=== PATIENT | male | born 1975 | race Two or more races ===

== ENCOUNTER 2017-11-09 18:46 | Emergency (ER) | payer BC, OTHER ==
[2017-11-09] MEDS ORDERED: ACETAMINOPHEN 500 MG TABLET PO ONE (19:00)
[2017-11-09] MEDS ORDERED: ACETAMINOPHEN 500 MG TABLET ONE (19:00)
[2017-11-09] MEDS ORDERED: SODIUM CHLORIDE FLUSH 10ML SYR IVF ONE (19:00)
[2017-11-09] MEDS ORDERED: SODIUM CHLORIDE 0.9% 1,000ML IVBOLUS ONE ×2 (19:00→20:30)
[2017-11-09 19:19] LABS: MEAN CORPUSCULAR HEMOGLOBIN 30.2 pg (27.5-34.5); MEAN CORPUSCULAR VOLUME 88.8 fL (81-97); PLATELET COUNT 203 x10^3/uL (130-400); RED BLOOD COUNT 5.68 x10^6/uL (4.38-5.82); RED CELL DISTRIBUTION WIDTH 13.5 % (9.4-14.8)
[2017-11-09 19:28] LABS: INTERNATIONAL NORMALIZED RATIO 1.01 (0.93-1.1); PROTHROMBIN TIME 10.4 Seconds (9.6-11.5)
[2017-11-09 19:34] LABS: RAPID INFLUENZA A Negative (Negative); RAPID INFLUENZA B Negative (Negative)
[2017-11-09 19:39] LABS: MD YES
[2017-11-09 19:52] LABS: BAND#(MANUAL) 1.52 x10^3/uL; BANDS%(MANUAL) 8 % (0-7); LYMPH#(MANUAL) 3.23 x10^3/uL (1-3.4); LYMPHS% (MANUAL) 17 % (22-44); MONOS#(MANUAL) 0.57 x10^3/uL (0.3-2.7); MONOS% (MANUAL) 3 % (2-9); SEG#(MANUAL) 13.68 x10^3/uL (1.8-6.8); SEGS% (MANUAL) 72 % (42-75)
[2017-11-09 19:53] LABS: <PLATELET ESTIMATE> ADEQUATE; <PLT MORPHOLOGY> NORMAL PLT MORPH; <RBC MORPHOLOGY> NORMAL
[2017-11-09 20:37] LABS: TROPONIN I < 0.015 ng/mL (0.000-0.045)
[2017-11-09] MEDS ORDERED: LISI-170 PO (21:09)
[2017-11-09 21:31] LABS: ALANINE AMINOTRANSFERASE 35 U/L (12-78); ALBUMIN 3.4 g/dL (3.4-5.0); ANION GAP 13 mmol/L (5-15); CALCIUM 8.4 mg/dL (8.5-10.1); CHLORIDE 105 mmol/L (98-107)
[2017-11-09 21:34] LABS: ALKALINE PHOSPHATASE 96 U/L (45-117); BILIRUBIN,TOTAL 0.5 mg/dL (0.2-1.0); TOTAL PROTEIN 8.1 g/dL (6.4-8.2)
[2017-11-09] MEDS ORDERED: AZITHROMYCIN 500 MG in SODIUM CHLORIDE 0.9% 250 ML IV ONE (22:00)
[2017-11-09] MEDS ORDERED: CEFTRIAXONE PMX 1GM/50ML 50 ML IV ONE (22:00)
[2017-11-09] MEDS ORDERED: CEFTRIAXONE PMX 1GM/50ML 50 ML ONE (22:02)
[2017-11-09 23:52] VITALS: BP 141/81
== END 2017-11-09 23:54 | disposition home or self-care (01) ==
LOC: ED 19:10
DX: J18.9 Pneumonia, unspecified organism (principal); R06.00 Dyspnea, unspecified; E11.9 Type 2 diabetes mellitus without complications; I10 Essential (primary) hypertension; G47.33 Obstructive sleep apnea (adult) (pediatric)
CPT/HCPCS: 36415; 71046; 80053; 83605; 84145; 84484; 85025; 85610; 85730; 87040; 87400; 93005; 96361; 96365; 96368; 99285; J0456; J0696; J7030; J7050